=== PATIENT | female | born 2000 | race Hispanic/Latino ===

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

== ENCOUNTER 2022-01-27 10:38 | Emergency (ER) | payer SELFPAY ==
[2022-01-27] MEDS ORDERED: Ibuprofen 200 MG TAB ONE (12:24)
== END 2022-01-27 13:10 | disposition home or self-care (01) ==
LOC: NAV ERS 10:38
DX: S20.219A Contusion of unspecified front wall of thorax, initial encounter (principal); W22.8XXA Striking against or struck by other objects, initial encounter